=== PATIENT | female | born 1990 | race Two or more races ===

== ENCOUNTER 2020-09-05 11:00 | Emergency (ER) | payer SELFPAY ==
[~2020-09-05] VITALS: Ht 157.5 cm; Wt 62.6 kg
[2020-09-05] MEDS ORDERED: ACETAMINOPHEN 325 MG TABLET. PO ONE (12:00)
[2020-09-05] MEDS ORDERED: IV NORMAL SALINE 1000ML BAG 1,000 ML IV SCH (12:00)
[2020-09-05] MEDS ORDERED: ONDANSETRON PF 4 MG/2 ML VIAL. IVP ONE (12:00)
--- NOTE | 2020-09-05 12:08 | PHYS DOC ---
Past Medical History Past Medical History: Other Additional Past Medical Histor: miscarriage Past Surgical History: No Surgical History Smoking Status: Never Smoker Alcohol Use: None General Adult EDM: Chief Complaint: ABDOMINAL PAIN HPI: HPI: Patient is a 29 year old female who presents with states her last menstrual period is June 23 and she is approximately 8 weeks . She does not have a OB doctor. She states that Wednesday she began having bilateral low back pain and then today began having vaginal bleeding and pain with urination. She rates her pain a 4 out of 10 and states it is an aching type pain. She states that she does have chills. Patient has not taken any pain medication. She denies fever. She is G4, P2 and 1 miscarriage. She denies any sexually transmitted disease concerns, dizziness, headache, fall, diarrhea, constipation, abnormal vaginal discharge, chest pain, shortness of air, cough, being around any biopsies been sick. She states that she does have morning sickness. She states that she recently moved to the [facility] and is trying to get insurance so she does not have a OB doctor. She states she takes no medications daily. Review of Systems: Review of Systems: Constitutional: Denies fever or chills. [] Eyes: Denies change in visual acuity. [] HENT: Denies nasal congestion or sore throat. [] Respiratory: Denies cough or shortness of breath. [] Cardiovascular: Denies chest pain or edema. [] GI: + abdominal pain, +nausea, denies vomiting, bloody stools or diarrhea. [] : Denies dysuria. + Urinary burning , + vaginal bleeding [] Musculoskeletal: + Bilateral back pain or denies joint pain. [] Integument: Denies rash. [] Neurologic: Denies headache, focal weakness or sensory changes. [] Endocrine: Denies polyuria or polydipsia. [] Lymphatic: Denies swollen glands. [] Psychiatric: Denies depression or anxiety. [] Heart Score: Risk Factors: Risk Factors: DM, Current or recent (<one month) smoker, HTN, HLP, family history of CAD, obesity. Risk Scores: Score 0 - 3: 2.5% MACE over next 6 weeks - Discharge Home Score 4 - 6: 20.3% MACE over next 6 weeks - Admit for Clinical Observation Score 7 - 10: 72.7% MACE over next 6 weeks - Early Invasive Strategies Current Medications: Current Medications Medications (Trade) Dose Ordered Sig/Christine Start Time Stop Time Status Last Admin Dose Admin Acetaminophen (Tylenol) 650 mg 1X ONCE 09/05/20 12:00 09/05/20 12:01 DC Ondansetron HCl (Zofran) 4 mg 1X ONCE 09/05/20 12:00 09/05/20 12:01 DC Sodium Chloride 1,000 ml @ 1,000 mls/hr Q1H 09/05/20 12:00 09/05/20 12:59 Allergies: Allergies: Allergies Coded Allergies Type Severity Reaction Last Updated Verified No Known Drug Allergies 09/05/20 No Physical Exam: PE: Constitutional: Well developed, well nourished, no acute distress, non-toxic appearance. [] HENT: Normocephalic, atraumatic, bilateral external ears normal, oropharynx moist, no oral exudates, nose normal. [] Eyes: PERRLA, EOMI, conjunctiva normal, no discharge. [] Neck: Normal range of motion, no tenderness, supple, no stridor. [] Cardiovascular:Heart rate regular rhythm, no murmur [] Lungs & Thorax: Bilateral breath sounds clear to auscultation [] Abdomen: Bowel sounds normal, soft, no tenderness, no masses, no pulsatile masses. [] Skin: Warm, dry, no erythema, no rash. [] Back: No tenderness, no CVA tenderness. [] Extremities: No tenderness, no cyanosis, no clubbing, ROM intact, no edema. [] Neurologic: Alert and oriented X 3, normal motor function, normal sensory function, no focal deficits noted. [] Psychologic: Affect normal, judgement normal, mood normal. Normal physical exam [] Current Patient Data: Labs: Laboratory Tests Test 09/05/20 11:15 POC Urine HCG, Qualitative Hcg positive (Negative) Vital Signs: Vital Signs Date Time Temp Pulse Resp B/P (MAP) Pulse Ox O2 Delivery O2 Flow Rate FiO2 09/05/20 11:10 98.1 74 16 117/63 (81) 100 Room Air 98.1 EKG: EKG: [] Radiology/Procedures: Radiology/Procedures: [] Impression: [facility] [address] [place] [address] IMAGING REPORT Signed PATIENT: DANII UGARTE JACCOUNT: [id number] : 1990 LOCATION: ER AGE: 29 SEX: F EXAM STATUS: REG ER ORD. PHYSICIAN: ALEXSANDRA MURRIETA APRN REASON: abd pain, back pain, vaginal bleeding PROCEDURE: OB <14 WKS W/TV Study: US OB <14 WKS +TV DATE: 09/05/2020 11:54 AM INDICATION: Abdominal pain. Back pain. Vaginal bleeding. COMPARISON: None. TECHNIQUE: Transabdominal and transvaginal ultrasonography of the pelvis was performed. Color Doppler and duplex were utilized as appropriate. FINDINGS: The uterus measures 11.1 x 6.7 x 5.6 cm. Cervical length of 2.8 cm. Thickened endometrium at 1.1 cm. No intrauterine gestational sac is identified. Complex, avascular debris within the endometrial canal at the lower uterine segment and trace fluid within the cervical canal. Unremarkable uterine parenchyma. The right ovary measures 3.5 x 2.1 x 2.3 cm and the left ovary 2.7 x 2.1 x 1.6 cm. Normal Doppler flow is maintained. Right ovarian simple cyst/follicle measuring 1 cm. Left ovarian/paraovarian simple cyst or follicle measuring up to 1.1 cm. No free pelvic fluid. IMPRESSION: 1. No intrauterine gestational sac or findings at either adnexa concerning for an ectopic. Avascular debris within the endometrial canal at the lower uterine segment and trace fluid within the cervical canal a component of which is favored small volume hemorrhage. Correlation is needed with beta-HCG levels to determine if a gestational sac should be seen. Both an early but non-visualized intrauterine or failed first trimester are both considerations at this time. 2. Normal Doppler flow to both ovaries. No complex cyst or mass. No free pelvic fluid. Electronically signed by: MAR HEIN MD (09/05/2020 1:11 PM) [facility] DICTATED and SIGNED BY: MAR HEIN MD DATE: 09/05/20 [id number] Course & Med Decision Making: Course & Med Decision Making Pertinent Labs and Imaging studies reviewed. (See chart for details) See HPI. Abdomen is soft and nontender. No CVA tenderness. Afebrile. Speaks in full complete sentences. Ambulatory with a steady gait. Skin pink warm and dry. Alert and oriented x4. Patient is given Tylenol in the ED. Pelvic Exam: Fruit Checker present Abdomen: Nontender External Genitalia: Normal Skin Speculum: Normal vaginal mucosa, small bloody cervical discharge without clots, cervical os closed Bimanual: No adnexal masses or tenderness, No CMT I have spoken to Dr. Alberto concerning ultrasound findings and blood work. He states the patient can follow-up with him in 3 weeks. He states there is nothing else that needs to be done at this time or your medications I need to get the patient. She will be placed on a antibiotic due to her having urinary symptoms. [] Naimaon Disclaimer: Deya Disclaimer: This electronic medical record was generated, in whole or in part, using a voice recognition dictation system. Departure Departure Impression: Primary Impression: Miscarriage Additional Impression: Urinary symptom or sign Disposition: 01 DC HOME SELF CARE/HOMELESS Condition: STABLE Referrals: NO PCP (PCP) JEROME ALBERTO Jr, MD Patient Instructions: Miscarriage, Recurrent Miscarriage Additional Instructions: Follow up with OB in 3 weeks. If you begin going through more than 1 pad a hour or begin running a fever return to the Emergency room. Drink plenty of fluids and take medication as prescribed and with food. Remeber that the pain medication can make you sleepy. Scripts Cephalexin (CEPHALEXIN) 500 Mg Capsule 1 CAP PO BID, #14 CAP Prov: ALEXSANDRA MURRIETA APRN 09/05/20 Hydrocodone Bit/Acetaminophen (HYDROCODONE-APAP 5-325 ) 1 Tab Tablet 1 TAB PO PRN Q6HRS PRN for PAIN, #15 TAB 0 Refills Prov: ALEXSANDRA MURRIETA APRN 09/05/20 ALEXSANDRA MURRIETA APRN Sep 05, 2020 12:08
[2020-09-05 12:24] LABS: BILIRUBIN,URINE NEGATIVE (NEG); CLARITY,URINE CLEAR; COLOR,URINE YELLOW; NITRITE,URINE NEGATIVE (NEG); PROTEIN,URINE 30 mg/dL (NEG-TRACE); UROBILINOGEN,URINE 0.2 mg/dL (0.2 mg/dL)
[2020-09-05 12:25] LABS: BASO % 1 % (0-3); EOS # 0.2 x10^3/uL (0.0-0.7); EOS % 2 % (0-3); HEMATOCRIT 37.5 % (36.0-47.0); HEMOGLOBIN 12.8 g/dL (12.0-15.5); LYMPH % 22 % (24-48); MEAN CORPUSCULAR HEMOGLOBIN 32 pg (25-35); MEAN CORPUSCULAR HGB CONC 34 g/dL (31-37); MEAN CORPUSCULAR VOLUME 92 fL (79-100); MONO # 0.4 x10^3/uL (0.0-1.1); MONO % 5 % (0-9); NEUT # 6.5 x10^3/uL (1.8-7.7); NEUT % 71 % (31-73); PLATELET COUNT 197 x10^3/uL (140-400); RED BLOOD COUNT 4.08 x10^6/uL (3.50-5.40); RED CELL DISTRIBUTION WIDTH 12.4 % (11.5-14.5); WHITE BLOOD COUNT 9.2 x10^3/uL (4.0-11.0)
[2020-09-05 12:34] LABS: BACTERIA,URINE 0 /HPF (0-FEW); RBC,URINE >40 /HPF (0-2)
[2020-09-05 12:36] LABS: PROTHROMBIN TIME PATIENT 12.2 SEC (11.7-14.0)
[2020-09-05 12:39] LABS: CALCIUM 7.8 mg/dL (8.5-10.1); CREATININE 0.6 mg/dL (0.6-1.0); GFR 119.9; POTASSIUM 3.6 mmol/L (3.5-5.1)
[2020-09-05 12:46] LABS: ALBUMIN 3.2 g/dL (3.4-5.0); ALBUMIN/GLOBULIN RATIO 0.9 (1.0-1.7); TOTAL BILIRUBIN 0.5 mg/dL (0.2-1.0); TOTAL PROTEIN 6.6 g/dL (6.4-8.2)
--- NOTE | 2020-09-05 13:13 | RAD ---
Study: US OB <14 WKS +TV DATE: 09/05/2020 11:54 AM INDICATION: Abdominal pain. Back pain. Vaginal bleeding. COMPARISON: None. TECHNIQUE: Transabdominal and transvaginal ultrasonography of the pelvis was performed. Color Doppler and duplex were utilized as appropriate. FINDINGS: The uterus measures 11.1 x 6.7 x 5.6 cm. Cervical length of 2.8 cm. Thickened endometrium at 1.1 cm. No intrauterine gestational sac is identified. Complex, avascular debris within the endometrial canal at the lower uterine segment and trace fluid within the cervical canal. Unremarkable uterine parench yma. The right ovary measures 3.5 x 2.1 x 2.3 cm and the left ovary 2.7 x 2.1 x 1.6 cm. Normal Doppler ronny w is maintained. Right ovarian simple cyst/follicle measuring 1 cm. Left ovarian/paraovarian simple c yst or follicle measuring up to 1.1 cm. No free pelvic fluid. IMPRESSION: 1. No intrauterine gestational sac or findings at either adnexa concerning for an ectopic. Avascular debris within the endometrial canal at the lower uterine segment and trace fluid within the cervical canal a component of which is favored small volume hemorrhage. Correlation is needed with beta-HCG l evels to determine if a gestational sac should be seen. Both an early but non-visualized intrauterine or failed first trimester are both considerations at this time. 2. Normal Doppler flow to both ovaries. No complex cyst or mass. No free pelvic fluid. Electronically signed by: MAR HEIN MD (09/05/2020 1:11 PM) [facility]
[2020-09-05 13:27] VITALS: BP 105/57
[2020-09-05] MEDS ORDERED: CEPH500C PO (13:27)
[2020-09-05] MEDS ORDERED: HYDR-2761 PO (13:27)
== END 2020-09-05 14:05 | disposition home or self-care (01) ==
LOC: ER 11:00
DX: O03.9 Complete or unspecified spontaneous abortion without complication (principal); Z3A.08 8 weeks gestation of pregnancy
CPT/HCPCS: 36415; 76801; 76817; 80053; 81001; 81025; 84702; 85025; 85610; 86850; 86900; 86901; 87086; 87491; 87591; 96361; 96374; 99284; J2405; J7030; Q0111

== ENCOUNTER 2021-10-15 00:02 | Emergency (ER) | payer SELFPAY ==
[~2021-10-15] VITALS: Ht 157.5 cm; Wt 54.5 kg
[~2021-10-15 00:02] MED LIST: CEPH500C PO; HYDR-2761 PO
[2021-10-15 01:51] LABS: HEMATOCRIT 36.9 % (36.0-47.0); HEMOGLOBIN 12.7 g/dL (12.0-15.5); RED BLOOD COUNT 4.1 x10^6/uL (3.50-5.40); WHITE BLOOD COUNT 7.5 x10^3/uL (4.0-11.0)
[2021-10-15] MEDS ORDERED: IBUPROFEN 400 MG TABLET. PO ONE (02:00)
[2021-10-15] MEDS ORDERED: ACETAMINOPHEN 500 MG TABLET PO ONE (02:00)
[2021-10-15 02:02] LABS: CALCIUM 8.2 mg/dL (8.5-10.1); CREATININE 0.6 mg/dL (0.6-1.0); GFR 118.2; POTASSIUM 3.8 mmol/L (3.5-5.1)
[2021-10-15 02:05] LABS: PREG TEST PT QUAL NEGATIVE (NEG)
[2021-10-15 02:18] LABS: BACTERIA,URINE FEW /HPF (0-FEW)
--- NOTE | 2021-10-15 02:31 | RAD ---
EXAM: ULTRASOUND PELVIS INDICATION: Reason: vaginal bleeding; low midline abd pain / Spl. Instructions: / History: . Last m enstrual period, current. COMPARISON: None available. TECHNIQUE: Transvaginal sonography was performed. FINDINGS: The uterus measures 8 x 4.3 x 3.9 cm. The endometrium measures 0.3 cm. There is no focal myometrial abnormality The right ovary measures 2.5 x 1.7 x 1.3 cm. The left ovary measures 2.4 x 1.5 x 1.4 cm. Flow seen to both ovaries. There is no free fluid. IMPRESSION: Normal sonographic survey of the pelvis. No evidence for ovarian torsion. Electronically signed by: Erwin Ron MD (10/15/2021 2:28 AM) [facility]
--- NOTE | 2021-10-15 03:30 | PHYS DOC ---
Past Medical History Past Medical History: Other Additional Past Medical Histor: miscarriage Past Surgical History: No Surgical History Smoking Status: Never Smoker Alcohol Use: Occasionally Adult General Chief Complaint Chief Complaint: VAGINAL BLEEDING HPI HPI The patient is a 31-year-old female who presents for evaluation of about 2 weeks of scant vaginal bleeding. Patient states that she has been using about 1 pad a day over that whole interval. States her period started at the normal time and tapered off but never quite ended. This is not normal for her. Associated low midline abdominal crampy discomfort at times. No fevers, nausea or vomiting, upper respiratory congestion/rhinorrhea, cough, sore throat, shortness of breath or chest pain of any kind, right-sided abdominal pain of any kind, flank pain, midline back pain, dysuria, hematuria, polyuria or oliguria, changes in bowel habits, unusual vaginal discharge. Vital signs are appropriate here and the patient is in no acute distress. Review of Systems Review of Systems A 12 point review of systems was completed and was negative except where noted in HPI above. Current Medications Current Medications Current Medications Medications (Trade) Dose Ordered Sig/Christine Start Time Stop Time Status Last Admin Dose Admin Acetaminophen (Tylenol) 1,000 mg 1X ONCE 10/15/21 02:00 10/15/21 02:01 DC 10/15/21 02:00 1,000 MG Ibuprofen (Motrin) 800 mg 1X ONCE 10/15/21 02:00 10/15/21 02:01 DC 10/15/21 02:00 800 MG Allergies Allergies Allergies Coded Allergies Type Severity Reaction Last Updated Verified No Known Drug Allergies 09/05/20 No Physical Exam Physical Exam 31-year-old female appearing nontoxic and in no acute distress. Head is normocephalic and atraumatic. Neck is supple and nontender. Oropharynx is moist. Lungs are clear to auscultation at all stations. There is normal S1 and S2 without rubs or gallops and capillary refill is appropriate, less than 2 seconds globally. Abdomen is soft, nontender and nondistended. Skin is warm and dry without cyanosis, clubbing or edema. Psychiatrically, the patient demonstrates appropriate mood and affect and is alert. Current Patient Data Vital Signs Vital Signs Date Time Temp Pulse Resp B/P (MAP) Pulse Ox O2 Delivery O2 Flow Rate FiO2 10/15/21 01:06 98.8 53 18 129/61 (83) 99 Room Air 98.8 Lab Values Laboratory Tests Test 10/15/21 01:45 10/15/21 02:05 10/15/21 02:06 White Blood Count 7.5 x10^3/uL (4.0-11.0) Red Blood Count 4.10 x10^6/uL (3.50-5.40) Hemoglobin 12.7 g/dL (12.0-15.5) Hematocrit 36.9 % (36.0-47.0) Mean Corpuscular Volume 90 fL (79-100) Mean Corpuscular Hemoglobin 31 pg (25-35) Mean Corpuscular Hemoglobin Concent 34 g/dL (31-37) Red Cell Distribution Width 13.0 % (11.5-14.5) Platelet Count 215 x10^3/uL (140-400) Sodium Level 138 mmol/L (136-145) Potassium Level 3.8 mmol/L (3.5-5.1) Chloride Level 105 mmol/L (98-107) Carbon Dioxide Level 26 mmol/L (21-32) Anion Gap 7 (6-14) Blood Urea Nitrogen 11 mg/dL (7-20) Creatinine 0.6 mg/dL (0.6-1.0) Estimated GFR (Cockcroft-Gault) 118.2 Glucose Level 119 mg/dL (70-99) H Calcium Level 8.2 mg/dL (8.5-10.1) L Serum Test, Qualitative Negative (NEG) Urine Collection Type Unknown Urine Color (Auto) Light yellow Urine Turbidity Hazy Urine pH (Auto) 6.5 (<5.0-8.0) Urine Specific Stryker 1.019 (1.000-1.030) Urine Protein (Auto) Negative mg/dL (Negative) Urine Glucose (Auto)(UA) Negative mg/dL (Negative) Urine Ketones (Auto) Negative mg/dL (Negative) Urine Blood (Auto) Large (Negative) Urine Nitrite Negative (Negative) Urine Bilirubin (Auto) Negative (Negative) Urine Urobilinogen (Auto) Normal mg/dL (Normal) Urine Leukocyte Esterase (Auto) Small (Negative) Urine RBC 11-20 /HPF (0-2) Urine WBC 5-10 /HPF (0-4) Urine Squamous Epithelial Cells Mod /LPF Urine Bacteria Few /HPF (0-FEW) Urine Mucus Mod /LPF POC Urine HCG, Qualitative Hcg negative (Negative) Laboratory Tests 10/15/21 01:45 Laboratory Tests 10/15/21 01:45 EKG EKG [] Radiology/Procedures Radiology/Procedures EXAM: ULTRASOUND PELVIS INDICATION: Reason: vaginal bleeding; low midline abd pain / Spl. Instructions: / History: . Last menstrual period, current. COMPARISON: None available. TECHNIQUE: Transvaginal sonography was performed. FINDINGS: The uterus measures 8 x 4.3 x 3.9 cm. The endometrium measures 0.3 cm. There is no focal myometrial abnormality The right ovary measures 2.5 x 1.7 x 1.3 cm. The left ovary measures 2.4 x 1.5 x 1.4 cm. Flow seen to both ovaries. There is no free fluid. IMPRESSION: Normal sonographic survey of the pelvis. No evidence for ovarian torsion. Electronically signed by: Erwin Nguyen MD (10/15/2021 2:28 AM) [facility] DICTATED and SIGNED BY: ERWIN NGUYEN MD DATE: 10/15/21226 Course & Med Decision Making Course & Med Decision Making Basic labs, urinalysis, urine and pelvic ultrasound are without evidence of acute process. Patient resting comfortably in no acute distress on reassessment. Will discharge home with a referral to gynecology for close follow-up of abnormal vaginal bleeding. Will hold off on an OCP prescription for now as this is a first episode of abnormal bleeding, is rather minimal in volume and has not lasted very long. Patient understands that if she feels worse instead of better or develops other new symptoms of concern that she should return to the emergency department immediately for reevaluation. All questions are answered. Fluent interpretation used to gather history, complete exam and perform discharge counseling. Dragon Disclaimer Dragon Disclaimer This electronic medical record was generated, in whole or in part, using a voice recognition dictation system. Departure Departure Impression: Primary Impression: Abnormal uterine bleeding Disposition: HOME / SELF CARE / HOMELESS Condition: STABLE Referrals: LAYTON DELGADILLO MD Patient Instructions: Menorrhagia Additional Instructions: Follow-up very closely with Dr. Delgadillo of gynecology in the office in the next 3 to 5 days for reevaluation of your symptoms and discussion of next best steps in care. The program management professional is the specialist who can help with vaginal bleeding problems. Drink plenty of fluids and get plenty of rest. Return to the emergency department right away for worsening symptoms of any kind or with any other new symptoms of concern CHANO SHERMAN MD Oct 15, 2021 03:30
[2021-10-15 08:09] VITALS: BP 106/59
== END 2021-10-15 08:11 | disposition home or self-care (01) ==
LOC: ER 00:02
DX: N93.9 Abnormal uterine and vaginal bleeding, unspecified (principal)
CPT/HCPCS: 36415; 76830; 80048; 81001; 81025; 84703; 85027; 87086; 99284-25